=== PATIENT | male | born 1935 | race African-American/Black ===

== ENCOUNTER 2019-07-19 02:11 | Inpatient (IN) | payer MEDICARE, OTHER ==
[2019-07-19] VITALS (39 sets, daily range): BP systolic 68–178; BP diastolic 39–90
[~2019-07-19] VITALS: Ht 165.1 cm; Wt 79.8 kg
[2019-07-19] MEDS ORDERED: SODIUM CHLORIDE 0.9% 1,000 ML IV ONE (02:27)
[2019-07-19] MEDS ORDERED: ACETAMINOPHEN 325MG TABLET PO STA (02:27)
[2019-07-19 03:15] LABS: BASOPHILS % 0.7 % (0.0-2.0); EOSINOPHILS % 2.2 % (0.0-5.0); HEMATOCRIT. 32.9 % (42.0-52.0); HEMOGLOBIN. 10.8 g/dL (14.0-18.0); LYMPHOCYTES % 10.7 % (20.0-50.0); MEAN PLATELET VOLUME 8.5 fl (7.4-10.4); MONOCYTES % 9.8 % (2.0-8.0); NEUTROPHILS % 76.6 % (40.0-76.0); PLATELET 271 x1000/uL (130-400); RED BLOOD CELL COUNT 3.87 mill/uL (4.7-6.1); RED CELL DISTRIBUTION WIDTH 15.5 % (11.6-14.6)
[2019-07-19 03:21] LABS: CHLORIDE 106 mEq/L (98-107); INR 1.1; PROTHROMBIN TIME 11.5 sec (9.6-11.0)
[2019-07-19] MEDS ORDERED: CEFTRIAXONE 1 G PREMIX 50 ML IV ONE (03:45)
[2019-07-19] MEDS ORDERED: AZITHROMYCIN 500 MG TABLET PO ONE (03:45)
[2019-07-19] MEDS ORDERED: ASPIRIN 325MG EC TABLET PO SCH (03:45)
[2019-07-19 05:28] LABS: CLARITY URINE CLEAR (CLEAR); COLOR URINE YELLOW (YELLOW); KETONES URINE NEGATIVE (NEGATIVE); LEUKOCYTE ESTERASE URINE NEGATIVE (NEGATIVE); NITRITE URINE NEGATIVE (NEGATIVE); OCCULT BLOOD URINE NEGATIVE (NEGATIVE); PH URINE 5.5 (4.5-8.0); PROTEIN URINE 3+ (NEGATIVE); SPECIFIC GRAVITY URINE 1.017 (1.005-1.030); UROBILINOGEN URINE 0.2 E.U./dL (0.2-1.0)
[2019-07-19] MEDS ORDERED: LISI40TA4 PO (08:36)
[2019-07-19] MEDS ORDERED: ATOR20TA65 PO (08:36)
[2019-07-19] MEDS ORDERED: METO-396 MT (08:42)
[2019-07-19] MEDS ORDERED: GLIP5TAB12 PO (08:42)
[2019-07-19] MEDS ORDERED: AMLO10TA80 MT (08:44)
[2019-07-19] MEDS ORDERED: ATOR20TA65 MT (08:44)
[2019-07-19] MEDS ORDERED: BENZONATATE 100MG CAPSULE PO PRN (09:00)
[2019-07-19] MEDS ORDERED: IPRATROPIUM/ALBUTEROL 0.5-3(2.5)MG/3ML NEB HHN PRN (09:00)
[2019-07-19] MEDS ORDERED: ONDANSETRON HCL 4MG/2ML INJ IV PRN (09:00)
[2019-07-19] MEDS ORDERED: DEXTROSE 50% WATER 50ML SYRINGE IV PRN (09:00)
[2019-07-19] MEDS ORDERED: FUROSEMIDE 40MG/4ML VIAL IVP SCH (10:00)
[2019-07-19] MEDS ORDERED: ALBUTEROL 6.7GM HFA INHALER ORI PRN (10:30)
[2019-07-19 11:02] LABS: BG BASE EXCESS -1.3 mmol/L (-2.0-2.0); BG CARBOXYHEMOGLOBIN 0.3 % (0.5-1.5); BG FRACTION INSPIRED OXYGEN 40; BG HCO3 ACT 23.7 mmol/L (22.0-26.0); BG METHEMOGLOBIN 0.4 % (0.0-1.5); BG OXYGEN SATURATION 89.9 % (92.0-98.5); BG OXYHEMOGLOBIN 89.3 % (94.0-97.0); BG PCO2 40.8 mmHg (35.0-45.0); BG PH 7.382 (7.350-7.450); BG PO2 57.6 mmHg (75.0-100.0); BG SAMPLE SITE RIGHT RADIAL; BG TOTAL HEMOGLOBIN 11.3 g/dL (12.0-18.0); BG VENT MODE NASAL CANNULA
[2019-07-19] MEDS: AMLODIPINE 5MG TABLET PO SCH ×2 (11:13→20:42)
[2019-07-19] MEDS: CEFTRIAXONE 1 G PREMIX 50 ML IV SCH (11:13)
[2019-07-19] MEDS: GUAIFENESIN 600MG ER TABLET PO SCH ×2 (11:13→20:42)
[2019-07-19] MEDS: LISINOPRIL 40MG TABLET PO SCH (11:14)
[2019-07-19] MEDS: BLOOD SUGAR DIAGNOSTIC STRIP TEST SCH ×3 (11:40→21:00)
[2019-07-19] MEDS: AZITHROMYCIN 500 MG in DEXT 5% WATER 250 ML IV SCH (12:01)
[2019-07-19] MEDS: CLONIDINE 0.1MG TABLET PO PRN (14:28)
[2019-07-19] MEDS: INSULIN LISPRO 100 UNITS/ML SUBCUT SCH ×3 (14:29→21:00)
[2019-07-19] MEDS ORDERED: NOREPINEPHRINE 4MG/250ML PMX 250 ML IV SCH (16:00)
[2019-07-19] MEDS: PROPOFOL 10MG/ML 100ML 100 ML IV PRN ×2 (16:20→23:18)
[2019-07-19] MEDS: ZINC SULFATE 220 MG ( 50 ) CAPSULE PO SCH (16:21)
[2019-07-19] MEDS: ASCORBIC ACID 500 MG TABLET PO SCH (16:21)
[2019-07-19] MEDS ORDERED: NOREPINEPHRINE 4 MG in SODIUM CHLORIDE 0.9% 246 ML IV SCH (17:30)
[2019-07-19] MEDS: ENOXAPARIN 40MG/0.4ML SYR SUBCUT SCH (17:30)
[2019-07-19] MEDS: ATORVASTATIN CALCIUM 20MG TABLET PO SCH (20:42)
[2019-07-20] VITALS (96 sets, daily range): BP systolic 96–184; BP diastolic 38–79
[2019-07-20] MEDS: PROPOFOL 10MG/ML 100ML 100 ML IV PRN ×6 (00:13→22:20)
[2019-07-20 05:36] LABS: CHLORIDE 106 mEq/L (98-107)
[2019-07-20 05:38] LABS: HEMATOCRIT. 30.7 % (42.0-52.0); MEAN CORPUSCULAR HEMOGLOBIN 27.6 pg (28.0-32.0); MEAN PLATELET VOLUME 8.3 fl (7.4-10.4); PLATELET 204 x1000/uL (130-400); RED BLOOD CELL COUNT 3.62 mill/uL (4.7-6.1); RED CELL DISTRIBUTION WIDTH 15.5 % (11.6-14.6)
[2019-07-20] MEDS: BLOOD SUGAR DIAGNOSTIC STRIP TEST SCH ×4 (05:41→21:25)
[2019-07-20] MEDS: INSULIN LISPRO 100 UNITS/ML SUBCUT SCH ×4 (05:41→21:00)
[2019-07-20] MEDS ORDERED: DOPAMINE 400MG/250ML PREMIX 250 ML IV PRN (07:00)
[2019-07-20 07:59] LABS: PLATELET ESTIMATE NORMAL
[2019-07-20 08:02] LABS: BG BASE EXCESS -8.1 mmol/L (-2.0-2.0); BG CARBOXYHEMOGLOBIN 0.3 % (0.5-1.5); BG DEOXYHEMOGLOBIN 4.8 % (0.0-5.0); BG HCO3 ACT 15.2 mmol/L (22.0-26.0); BG METHEMOGLOBIN 0.3 % (0.0-1.5); BG OXYGEN SATURATION 95.2 % (92.0-98.5); BG OXYHEMOGLOBIN 94.6 % (94.0-97.0); BG PCO2 24.6 mmHg (35.0-45.0); BG PO2 83.2 mmHg (75.0-100.0); BG SAMPLE SITE RIGHT BRACHIAL; BG TIDAL VOLUME(mL) 500 mL; BG TOTAL HEMOGLOBIN 9.3 g/dL (12.0-18.0); BG VENT MODE VENT - A/C; BG VENT RATE 16 set
[2019-07-20] MEDS: AMLODIPINE 5MG TABLET PO SCH ×2 (09:00→21:27)
[2019-07-20] MEDS: AZITHROMYCIN 500 MG in DEXT 5% WATER 250 ML IV SCH (09:00)
[2019-07-20] MEDS: LISINOPRIL 40MG TABLET PO SCH (09:00)
[2019-07-20] MEDS: ASCORBIC ACID 500 MG TABLET PO SCH (09:15)
[2019-07-20] MEDS: GUAIFENESIN 600MG ER TABLET PO SCH ×2 (09:15→21:00)
[2019-07-20] MEDS: ZINC SULFATE 220 MG ( 50 ) CAPSULE PO SCH (09:15)
[2019-07-20] MEDS: PANTOPRAZOLE SODIUM 40 MG/VIAL IV SCH (09:15)
[2019-07-20] MEDS: FUROSEMIDE 40MG/4ML VIAL IVP SCH (12:58)
[2019-07-20] MEDS: CEFTRIAXONE 1 G PREMIX 50 ML IV SCH (13:36)
[2019-07-20] MEDS: ENOXAPARIN 40MG/0.4ML SYR SUBCUT SCH (18:09)
[2019-07-20] MEDS: ATORVASTATIN CALCIUM 20MG TABLET PO SCH (21:25)
[2019-07-21] VITALS (92 sets, daily range): BP systolic 113–167; BP diastolic 41–93
[2019-07-21] MEDS: PROPOFOL 10MG/ML 100ML 100 ML IV PRN ×4 (02:06→20:41)
[2019-07-21 05:50] LABS: CHLORIDE 107 mEq/L (98-107); HEMATOCRIT. 29.9 % (42.0-52.0); HEMOGLOBIN. 9.9 g/dL (14.0-18.0); MEAN CORPUSCULAR HEMOGLOBIN 27.9 pg (28.0-32.0); MEAN CORPUSCULAR VOLUME 83.8 fL (80.0-94.0); MEAN PLATELET VOLUME 8.8 fl (7.4-10.4); PLATELET 228 x1000/uL (130-400); RED BLOOD CELL COUNT 3.56 mill/uL (4.7-6.1); RED CELL DISTRIBUTION WIDTH 15.6 % (11.6-14.6)
[2019-07-21 06:00] LABS: CREATINE KINASE 74 IU/L (39-308)
[2019-07-21] MEDS: BLOOD SUGAR DIAGNOSTIC STRIP TEST SCH ×4 (06:02→23:35)
[2019-07-21] MEDS: INSULIN LISPRO 100 UNITS/ML SUBCUT SCH ×4 (06:03→23:35)
[2019-07-21] MEDS: ZINC SULFATE 220 MG ( 50 ) CAPSULE PO SCH (08:56)
[2019-07-21] MEDS: AMLODIPINE 5MG TABLET PO SCH ×2 (08:56→20:23)
[2019-07-21] MEDS: AZITHROMYCIN 500 MG in DEXT 5% WATER 250 ML IV SCH (08:56)
[2019-07-21] MEDS: FUROSEMIDE 40MG/4ML VIAL IVP SCH (08:56)
[2019-07-21] MEDS: PANTOPRAZOLE SODIUM 40 MG/VIAL IV SCH (08:56)
[2019-07-21] MEDS: ASCORBIC ACID 500 MG TABLET PO SCH (08:57)
[2019-07-21] MEDS: LISINOPRIL 40MG TABLET PO SCH (08:59)
[2019-07-21] MEDS: CEFTRIAXONE 1 G PREMIX 50 ML IV SCH (09:00)
[2019-07-21 09:30] LABS: BG BASE EXCESS -2.3 mmol/L (-2.0-2.0); BG CARBOXYHEMOGLOBIN 0.3 % (0.5-1.5); BG DEOXYHEMOGLOBIN 3.1 % (0.0-5.0); BG FRACTION INSPIRED OXYGEN 40; BG HCO3 ACT 21.8 mmol/L (22.0-26.0); BG METHEMOGLOBIN 0.3 % (0.0-1.5); BG OXYGEN SATURATION 96.9 % (92.0-98.5); BG OXYHEMOGLOBIN 96.3 % (94.0-97.0); BG PCO2 35.1 mmHg (35.0-45.0); BG PH 7.412 (7.350-7.450); BG PO2 86.4 mmHg (75.0-100.0); BG SAMPLE SITE RIGHT RADIAL; BG TIDAL VOLUME(mL) 500 mL; BG TOTAL HEMOGLOBIN 10.1 g/dL (12.0-18.0); BG VENT MODE VENT - A/C; BG VENT RATE 16 set
[2019-07-21] MEDS: GUAIFENESIN 600MG ER TABLET PO SCH ×2 (09:34→20:23)
[2019-07-21] MEDS: ASPIRIN 81MG TABLET PO SCH (12:04)
[2019-07-21 15:46] LABS: PLATELET ESTIMATE NORMAL
[2019-07-21] MEDS: ENOXAPARIN 40MG/0.4ML SYR SUBCUT SCH (17:18)
[2019-07-21] MEDS: ATORVASTATIN CALCIUM 20MG TABLET PO SCH (20:23)
[2019-07-22] VITALS (81 sets, daily range): BP systolic 113–169; BP diastolic 50–95
[2019-07-22] MEDS: PROPOFOL 10MG/ML 100ML 100 ML IV PRN ×6 (01:28→23:27)
[2019-07-22 06:17] LABS: CHLORIDE 107 mEq/L (98-107)
[2019-07-22 06:19] LABS: BASOPHILS % 1.1 % (0.0-2.0); EOSINOPHILS % 3.1 % (0.0-5.0); HEMATOCRIT. 30.4 % (42.0-52.0); LYMPHOCYTES % 16.3 % (20.0-50.0); MEAN CORPUSCULAR HEMOGLOBIN 27.8 pg (28.0-32.0); MEAN CORPUSCULAR VOLUME 84.6 fL (80.0-94.0); MEAN PLATELET VOLUME 8.6 fl (7.4-10.4); MONOCYTES % 11.5 % (2.0-8.0); PLATELET 265 x1000/uL (130-400); RED BLOOD CELL COUNT 3.59 mill/uL (4.7-6.1); RED CELL DISTRIBUTION WIDTH 15.4 % (11.6-14.6)
[2019-07-22] MEDS: INSULIN LISPRO 100 UNITS/ML SUBCUT SCH ×4 (07:00→23:28)
[2019-07-22] MEDS: BLOOD SUGAR DIAGNOSTIC STRIP TEST SCH ×4 (07:00→23:28)
[2019-07-22 08:08] LABS: BG BASE EXCESS 0.3 mmol/L (-2.0-2.0); BG CARBOXYHEMOGLOBIN 0.3 % (0.5-1.5); BG DEOXYHEMOGLOBIN 2.1 % (0.0-5.0); BG FRACTION INSPIRED OXYGEN 40; BG HCO3 ACT 23.8 mmol/L (22.0-26.0); BG METHEMOGLOBIN 0.3 % (0.0-1.5); BG OXYGEN SATURATION 97.9 % (92.0-98.5); BG OXYHEMOGLOBIN 97.3 % (94.0-97.0); BG PH 7.463 (7.350-7.450); BG PO2 102.5 mmHg (75.0-100.0); BG SAMPLE SITE RIGHT RADIAL; BG TIDAL VOLUME(mL) 500 mL; BG TOTAL HEMOGLOBIN 10.2 g/dL (12.0-18.0); BG VENT MODE VENT - A/C; BG VENT RATE 16 set
[2019-07-22] MEDS: PANTOPRAZOLE SODIUM 40 MG/VIAL IV SCH (08:17)
[2019-07-22] MEDS: FUROSEMIDE 40MG/4ML VIAL IVP SCH (08:17)
[2019-07-22] MEDS: AMLODIPINE 5MG TABLET PO SCH ×2 (08:18→21:07)
[2019-07-22] MEDS: ZINC SULFATE 220 MG ( 50 ) CAPSULE PO SCH (08:18)
[2019-07-22] MEDS: GUAIFENESIN 600MG ER TABLET PO SCH ×2 (08:18→21:07)
[2019-07-22] MEDS: ASCORBIC ACID 500 MG TABLET PO SCH (08:18)
[2019-07-22] MEDS: ASPIRIN 81MG TABLET PO SCH (08:18)
[2019-07-22] MEDS: LISINOPRIL 40MG TABLET PO SCH (08:18)
[2019-07-22] MEDS: AZITHROMYCIN 500 MG in DEXT 5% WATER 250 ML IV SCH (09:00)
[2019-07-22] MEDS: CEFTRIAXONE 1 G PREMIX 50 ML IV SCH (10:50)
[2019-07-22] MEDS ORDERED: POTASSIUM CHLORIDE 20MEQ TABLET SR PO ONE (11:30)
[2019-07-22] MEDS ORDERED: POTASSIUM CHLORIDE 20MEQ/PACKET PO NR (11:30)
[2019-07-22] MEDS: DOCUSATE SODIUM 250MG CAPSULE PO SCH (11:58)
[2019-07-22] MEDS: ENOXAPARIN 40MG/0.4ML SYR SUBCUT SCH (17:53)
[2019-07-22] MEDS: ATORVASTATIN CALCIUM 20MG TABLET PO SCH (21:08)
[2019-07-23] VITALS (90 sets, daily range): BP systolic 106–199; BP diastolic 48–106
[2019-07-23] MEDS: PROPOFOL 10MG/ML 100ML 100 ML IV PRN ×2 (04:08→17:19)
[2019-07-23] MEDS: BLOOD SUGAR DIAGNOSTIC STRIP TEST SCH ×4 (05:25→23:30)
[2019-07-23] MEDS: INSULIN LISPRO 100 UNITS/ML SUBCUT SCH ×3 (05:25→18:39)
[2019-07-23 05:39] LABS: BASOPHILS % 0.8 % (0.0-2.0); EOSINOPHILS % 2.4 % (0.0-5.0); HEMATOCRIT. 31.6 % (42.0-52.0); HEMOGLOBIN. 10.4 g/dL (14.0-18.0); MEAN CORPUSCULAR HEMOGLOBIN 27.7 pg (28.0-32.0); MEAN CORPUSCULAR VOLUME 84.3 fL (80.0-94.0); MEAN PLATELET VOLUME 8.5 fl (7.4-10.4); MONOCYTES % 13.5 % (2.0-8.0); NEUTROPHILS % 66.3 % (40.0-76.0); PLATELET 266 x1000/uL (130-400); RED BLOOD CELL COUNT 3.75 mill/uL (4.7-6.1); RED CELL DISTRIBUTION WIDTH 15.3 % (11.6-14.6)
[2019-07-23 05:44] LABS: CHLORIDE 108 mEq/L (98-107)
[2019-07-23] MEDS: CLONIDINE 0.1MG TABLET PO PRN (07:17)
[2019-07-23] MEDS: DOCUSATE SODIUM 250MG CAPSULE PO SCH (09:00)
[2019-07-23] MEDS: ZINC SULFATE 220 MG ( 50 ) CAPSULE PO SCH (09:02)
[2019-07-23] MEDS: LISINOPRIL 40MG TABLET PO SCH (09:03)
[2019-07-23] MEDS: ASCORBIC ACID 500 MG TABLET PO SCH (09:05)
[2019-07-23] MEDS: ASPIRIN 81MG TABLET PO SCH (09:05)
[2019-07-23] MEDS: AZITHROMYCIN 500 MG in DEXT 5% WATER 250 ML IV SCH (09:06)
[2019-07-23] MEDS: AMLODIPINE 5MG TABLET PO SCH ×2 (09:07→21:12)
[2019-07-23] MEDS: FUROSEMIDE 40MG/4ML VIAL IVP SCH (09:08)
[2019-07-23] MEDS: PANTOPRAZOLE SODIUM 40 MG/VIAL IV SCH (09:13)
[2019-07-23] MEDS: GUAIFENESIN 600MG ER TABLET PO SCH ×2 (09:27→21:12)
[2019-07-23] MEDS: CEFTRIAXONE 1 G PREMIX 50 ML IV SCH (09:27)
[2019-07-23] MEDS ORDERED: LACTULOSE 20G/30ML UDC PO NR (10:15)
[2019-07-23 12:30] LABS: BG BASE EXCESS -1.4 mmol/L (-2.0-2.0); BG CARBOXYHEMOGLOBIN 0.3 % (0.5-1.5); BG DEOXYHEMOGLOBIN 4.9 % (0.0-5.0); BG FRACTION INSPIRED OXYGEN 40; BG HCO3 ACT 23.4 mmol/L (22.0-26.0); BG METHEMOGLOBIN 0.3 % (0.0-1.5); BG OXYGEN SATURATION 95.1 % (92.0-98.5); BG OXYHEMOGLOBIN 94.5 % (94.0-97.0); BG PCO2 39.6 mmHg (35.0-45.0); BG PH 7.389 (7.350-7.450); BG PO2 75.3 mmHg (75.0-100.0); BG PRESSURE SUPPORT 8; BG SAMPLE SITE RIGHT RADIAL; BG TOTAL HEMOGLOBIN 10.7 g/dL (12.0-18.0); BG VENT MODE VENT - CPAP
[2019-07-23] MEDS: ENOXAPARIN 40MG/0.4ML SYR SUBCUT SCH (18:40)
[2019-07-23] MEDS: ATORVASTATIN CALCIUM 20MG TABLET PO SCH (21:12)
[2019-07-24] VITALS (55 sets, daily range): BP systolic 108–169; BP diastolic 49–93
[2019-07-24] MEDS: INSULIN LISPRO 100 UNITS/ML SUBCUT SCH ×4 (00:10→17:44)
[2019-07-24] MEDS: PROPOFOL 10MG/ML 100ML 100 ML IV PRN ×2 (02:13→05:46)
[2019-07-24 05:52] LABS: EOSINOPHILS % 5.7 % (0.0-5.0); HEMATOCRIT. 31.4 % (42.0-52.0); HEMOGLOBIN. 10.2 g/dL (14.0-18.0); LYMPHOCYTES % 16.7 % (20.0-50.0); MEAN CORPUSCULAR HEMOGLOBIN 27.4 pg (28.0-32.0); MEAN CORPUSCULAR VOLUME 84.2 fL (80.0-94.0); MEAN PLATELET VOLUME 8.7 fl (7.4-10.4); MONOCYTES % 14.6 % (2.0-8.0); PLATELET 240 x1000/uL (130-400); RED BLOOD CELL COUNT 3.73 mill/uL (4.7-6.1); RED CELL DISTRIBUTION WIDTH 15.6 % (11.6-14.6)
[2019-07-24] MEDS: BLOOD SUGAR DIAGNOSTIC STRIP TEST SCH ×4 (06:28→23:30)
[2019-07-24 07:26] LABS: CHLORIDE 107 mEq/L (98-107)
[2019-07-24] MEDS ORDERED: AZITHROMYCIN 500 MG TABLET PO SCH (09:00)
[2019-07-24] MEDS: DOCUSATE SODIUM 250MG CAPSULE PO SCH (09:00)
[2019-07-24] MEDS: FUROSEMIDE 40MG/4ML VIAL IVP SCH (09:16)
[2019-07-24] MEDS: CEFTRIAXONE 1 G PREMIX 50 ML IV SCH (09:16)
[2019-07-24] MEDS: ASPIRIN 81MG TABLET PO SCH (09:17)
[2019-07-24] MEDS: PANTOPRAZOLE SODIUM 40 MG/VIAL IV SCH (09:17)
[2019-07-24] MEDS: LISINOPRIL 40MG TABLET PO SCH (09:17)
[2019-07-24] MEDS: GUAIFENESIN 600MG ER TABLET PO SCH ×2 (09:17→21:02)
[2019-07-24] MEDS: AMLODIPINE 5MG TABLET PO SCH (09:17)
[2019-07-24] MEDS: ASCORBIC ACID 500 MG TABLET PO SCH (09:17)
[2019-07-24] MEDS: ZINC SULFATE 220 MG ( 50 ) CAPSULE PO SCH (09:17)
[2019-07-24] MEDS: LORAZEPAM 2MG/ML CPJ IV PRN ×2 (10:44→16:49)
[2019-07-24 11:42] LABS: BG BASE EXCESS 1.1 mmol/L (-2.0-2.0); BG CARBOXYHEMOGLOBIN 0.3 % (0.5-1.5); BG DEOXYHEMOGLOBIN 2.9 % (0.0-5.0); BG FRACTION INSPIRED OXYGEN 40; BG HCO3 ACT 25.4 mmol/L (22.0-26.0); BG METHEMOGLOBIN 0.4 % (0.0-1.5); BG OXYGEN SATURATION 97.1 % (92.0-98.5); BG OXYHEMOGLOBIN 96.4 % (94.0-97.0); BG PCO2 39.1 mmHg (35.0-45.0); BG PH 7.431 (7.350-7.450); BG PO2 92.7 mmHg (75.0-100.0); BG PRESSURE SUPPORT 8; BG SAMPLE SITE RIGHT RADIAL; BG TOTAL HEMOGLOBIN 10.6 g/dL (12.0-18.0); BG VENT MODE VENT - CPAP
[2019-07-24] MEDS: ENOXAPARIN 40MG/0.4ML SYR SUBCUT SCH (17:43)
[2019-07-24] MEDS: ATORVASTATIN CALCIUM 20MG TABLET PO SCH (21:02)
[2019-07-24] MEDS: DILTIAZEM HCL 5MG/ML 5ML VIAL IV PRN (21:02)
[2019-07-24] MEDS: DILTIAZEM HCL 60MG TABLET PO SCH (22:31)
[2019-07-25] VITALS (32 sets, daily range): BP systolic 115–176; BP diastolic 60–98
[2019-07-25] MEDS: CLONIDINE 0.1MG TABLET PO PRN ×2 (00:46→06:53)
[2019-07-25] MEDS: INSULIN LISPRO 100 UNITS/ML SUBCUT SCH ×5 (00:50→23:42)
[2019-07-25] MEDS: BLOOD SUGAR DIAGNOSTIC STRIP TEST SCH ×4 (05:30→23:37)
[2019-07-25 06:07] LABS: BASOPHILS % 1.1 % (0.0-2.0); EOSINOPHILS % 1.9 % (0.0-5.0); HEMATOCRIT. 34.4 % (42.0-52.0); HEMOGLOBIN. 11.1 g/dL (14.0-18.0); LYMPHOCYTES % 16.6 % (20.0-50.0); MEAN CORPUSCULAR HEMOGLOBIN 27.1 pg (28.0-32.0); MEAN CORPUSCULAR VOLUME 84.4 fL (80.0-94.0); MEAN PLATELET VOLUME 8.9 fl (7.4-10.4); NEUTROPHILS % 66.4 % (40.0-76.0); PLATELET 308 x1000/uL (130-400); RED BLOOD CELL COUNT 4.08 mill/uL (4.7-6.1); RED CELL DISTRIBUTION WIDTH 15.8 % (11.6-14.6)
[2019-07-25] MEDS: DILTIAZEM HCL 60MG TABLET PO SCH (06:11)
[2019-07-25] MEDS: DILTIAZEM HCL 5MG/ML 5ML VIAL IV PRN (06:11)
[2019-07-25 06:25] LABS: CHLORIDE 107 mEq/L (98-107)
[2019-07-25] MEDS ORDERED: CLONIDINE 0.1MG TABLET PO PRN (06:30)
[2019-07-25] MEDS: ZINC SULFATE 220 MG ( 50 ) CAPSULE PO SCH (08:12)
[2019-07-25] MEDS: ASPIRIN 81MG TABLET PO SCH (08:12)
[2019-07-25] MEDS: DOCUSATE SODIUM 250MG CAPSULE PO SCH (08:12)
[2019-07-25] MEDS: LISINOPRIL 40MG TABLET PO SCH (08:12)
[2019-07-25] MEDS: PANTOPRAZOLE SODIUM 40 MG/VIAL IV SCH (08:12)
[2019-07-25] MEDS: GUAIFENESIN 600MG ER TABLET PO SCH ×2 (08:12→21:03)
[2019-07-25] MEDS: FUROSEMIDE 40MG/4ML VIAL IVP SCH (08:12)
[2019-07-25] MEDS: ASCORBIC ACID 500 MG TABLET PO SCH (08:12)
[2019-07-25] MEDS: DILTIAZEM HCL 90MG TABLET PO SCH ×2 (15:42→21:04)
[2019-07-25] MEDS: ENOXAPARIN 40MG/0.4ML SYR SUBCUT SCH (18:24)
[2019-07-25] MEDS: ATORVASTATIN CALCIUM 20MG TABLET PO SCH (21:03)
[2019-07-26] VITALS (13 sets, daily range): BP systolic 131–167; BP diastolic 62–116
[2019-07-26] MEDS: BLOOD SUGAR DIAGNOSTIC STRIP TEST SCH ×3 (05:42→17:16)
[2019-07-26] MEDS: INSULIN LISPRO 100 UNITS/ML SUBCUT SCH ×3 (05:44→17:35)
[2019-07-26] MEDS: DILTIAZEM HCL 90MG TABLET PO SCH ×3 (05:44→21:19)
[2019-07-26 07:07] LABS: HEMATOCRIT. 34.3 % (42.0-52.0); MEAN CORPUSCULAR HEMOGLOBIN 27.3 pg (28.0-32.0); MEAN PLATELET VOLUME 8.9 fl (7.4-10.4); PLATELET 294 x1000/uL (130-400); RED BLOOD CELL COUNT 4.04 mill/uL (4.7-6.1)
[2019-07-26 07:28] LABS: CHLORIDE 108 mEq/L (98-107)
[2019-07-26] MEDS: PANTOPRAZOLE SODIUM 40 MG/VIAL IV SCH (09:26)
[2019-07-26] MEDS: ZINC SULFATE 220 MG ( 50 ) CAPSULE PO SCH ×2 (09:26→09:33)
[2019-07-26] MEDS: FUROSEMIDE 40MG/4ML VIAL IVP SCH (09:26)
[2019-07-26] MEDS: ASCORBIC ACID 500 MG TABLET PO SCH (09:26)
[2019-07-26] MEDS: ASPIRIN 81MG TABLET PO SCH (09:26)
[2019-07-26] MEDS: GUAIFENESIN 600MG ER TABLET PO SCH ×2 (09:31→20:09)
[2019-07-26] MEDS: LISINOPRIL 40MG TABLET PO SCH (09:32)
[2019-07-26] MEDS: DOCUSATE SODIUM 250MG CAPSULE PO SCH (09:34)
[2019-07-26] MEDS: ENOXAPARIN 40MG/0.4ML SYR SUBCUT SCH (17:16)
[2019-07-26 17:44] LABS: PLATELET ESTIMATE NORMAL
[2019-07-26] MEDS: ATORVASTATIN CALCIUM 20MG TABLET PO SCH (20:08)
[2019-07-26] MEDS: ACETAMINOPHEN 325MG TABLET PO PRN (20:08)
[2019-07-26] MEDS: LORAZEPAM 2MG/ML CPJ IV PRN (20:16)
[2019-07-27] VITALS (9 sets, daily range): BP systolic 126–153; BP diastolic 56–80
[2019-07-27] MEDS: BLOOD SUGAR DIAGNOSTIC STRIP TEST SCH ×4 (00:12→17:56)
[2019-07-27] MEDS: INSULIN LISPRO 100 UNITS/ML SUBCUT SCH ×4 (00:33→17:53)
[2019-07-27] MEDS: DILTIAZEM HCL 90MG TABLET PO SCH ×2 (05:54→17:54)
[2019-07-27] MEDS: PANTOPRAZOLE SODIUM 40 MG/VIAL IV SCH (09:23)
[2019-07-27] MEDS: ASCORBIC ACID 500 MG TABLET PO SCH (09:24)
[2019-07-27] MEDS: ZINC SULFATE 220 MG ( 50 ) CAPSULE PO SCH (09:24)
[2019-07-27] MEDS: LISINOPRIL 40MG TABLET PO SCH (09:24)
[2019-07-27] MEDS: DOCUSATE SODIUM 250MG CAPSULE PO SCH (09:24)
[2019-07-27] MEDS: ASPIRIN 81MG TABLET PO SCH (09:24)
[2019-07-27] MEDS: ACETAMINOPHEN 325MG TABLET PO PRN (09:25)
[2019-07-27] MEDS: GUAIFENESIN 600MG ER TABLET PO SCH (09:30)
[2019-07-27] MEDS: FUROSEMIDE 40MG/4ML VIAL IVP SCH (09:30)
[2019-07-27] MEDS: ENOXAPARIN 40MG/0.4ML SYR SUBCUT SCH (17:56)
== END 2019-07-27 19:34 | disposition short-term general hospital (02) | DRG 870 ==
LOC: ER 02:11 → EDBEDREQ 03:50 → EDBEDREQTM 03:50 → 7EST 04:16 → EDBEDREQSVC 04:17 → EDBEDREQTM 04:17 → ENRESERV 04:31 → 7EST 14:40 → MICUSO 15:17 → CVICU 07-21 17:04 → 5EST 07-25 13:13
PROVIDERS: ADMIT Internal Medicine; ATTEND Internal Medicine
PROC: 5A1955Z Respiratory Ventilation, Greater than 96 Consecutive Hours (ICD-10-PCS; principal; 2019-07-19)
PROC: 0BH18EZ Insertion of Endotracheal Airway into Trachea, Via Natural or Artificial Opening Endoscopic (ICD-10-PCS; 2019-07-19)
DX: A41.9 Sepsis, unspecified organism (principal); J96.00 Acute respiratory failure, unspecified whether with hypoxia or hypercapnia; J18.9 Pneumonia, unspecified organism; E43 Unspecified severe protein-calorie malnutrition; I21.4 Non-ST elevation (NSTEMI) myocardial infarction; I50.33 Acute on chronic diastolic (congestive) heart failure; I47.1 Supraventricular tachycardia; J44.0 Chronic obstructive pulmonary disease with (acute) lower respiratory infection; E11.9 Type 2 diabetes mellitus without complications; D64.9 Anemia, unspecified; D72.821 Monocytosis (symptomatic); I11.0 Hypertensive heart disease with heart failure; I25.118 Atherosclerotic heart disease of native coronary artery with other forms of angina pectoris; I27.20 Pulmonary hypertension, unspecified; Z95.1 Presence of aortocoronary bypass graft; Z20.828 Contact with and (suspected) exposure to other viral communicable diseases; I36.1 Nonrheumatic tricuspid (valve) insufficiency; Z79.899 Other long term (current) drug therapy; Z68.29 Body mass index [BMI] 29.0-29.9, adult; Z78.1 Physical restraint status; Z03.818 Encounter for observation for suspected exposure to other biological agents ruled out
CPT/HCPCS: 31500; 36415; 36600; 71045; 80048; 80053; 80076; 81003; 82140; 82375; 82550; 82553; 82728; 82805; 82962; 83605; 83615; 83880; 84145; 84478; 84484; 85025; 85379; 86140; 87070; 87635; 87804; 92610; 93005; 93306; 94002; 94003; 94640; 96365; 97162; 97166; 97530; 99291; C9113; J0456; J0696; J1650; J1815; J1940; J2060; J2704; J3490; J7030; J7050; J7060